=== PATIENT | male | born 1960 | race Caucasian/White ===

== ENCOUNTER 2020-01-17 15:27 | Emergency (ER) | payer BC ==
--- NOTE | 2020-01-17 16:00 | CR ---
PROCEDURE INFORMATION: Exam: XR Right Ankle Exam date and time: 01/17/2020 3:50 PM Age: 59 years old Clinical indication: Other: Fall/pain TECHNIQUE: Imaging protocol: XR Right ankle. Views: 3 or more views. COMPARISON: No relevant prior studies available. FINDINGS: Bones/joints: Widening of the medial ankle mortise with probable fracture in the medial malleolus. Ligamentous injury is also suspected. Consider MRI. Small plantar calcaneal spur. Soft tissues: Normal. IMPRESSION: Widening of the medial ankle mortise with probable fracture in the medial malleolus. Ligamentous injury is also suspected. Consider MRI.
--- NOTE | 2020-01-17 16:41 | EDM.PDOC ---
Scribed by Valeria Hendricks 01/17/20 [id number] for Angelica Witt NP ED HPI GENERAL MEDICAL PROBLEM - General Chief Complaint: Lower Extremity Injury/Pain Stated Complaint: FELL OFF LADDER RIGHT ANKLE POSSIBLY BROKEN Time Seen by Provider: 01/17/20 15:55 Source of Information: Reports: Patient, RN, RN Notes Reviewed History Limitations: Reports: No Limitations - History of Present Illness INITIAL COMMENTS - FREE TEXT/NARRATIVE: Patient presents to the ED with complaint of right medial ankle pain after fall 5 feet from jumping ladder to avoid branch falling. He jumped off and landed on on his right ankle. Onset: Today Duration: Getting Worse Location: Reports: Lower Extremity, Right Quality: Reports: Ache Severity: Moderate Improves with: Reports: None Worsens with: Reports: None Associated Symptoms: Reports: No Other Symptoms Right Ankle Pain Score (Numeric/FACES): 8 - Related Data Allergies Allergy/AdvReac Type Severity Reaction Status Date / Time No Known Allergies Allergy Verified 01/17/20 15:42 Home Meds: Home Meds . [No Known Home Meds] 01/17/20 [History] Past Medical History HEENT History: Reports: Impaired Vision Cardiovascular History: Reports: None Respiratory History: Reports: None Gastrointestinal History: Reports: None Genitourinary History: Reports: None Musculoskeletal History: Reports: None Neurological History: Reports: None Psychiatric History: Reports: None Endocrine/Metabolic History: Reports: None Hematologic History: Reports: None Immunologic History: Reports: None Oncologic (Cancer) History: Reports: None Dermatologic History: Reports: None - Infectious Disease History Infectious Disease History: Reports: None - Past Surgical History Head Surgeries/Procedures: Reports: None Social & Family History - Family History Family Medical History: Noncontributory - Tobacco Use Smoking Status *Q: Never Smoker Second Hand Smoke Exposure: No - Caffeine Use Caffeine Use: Reports: None - Recreational Drug Use Recreational Drug Use: No Review of Systems - Review of Systems Review Of Systems: Comprehensive ROS is negative, except as noted in HPI. ED EXAM, GENERAL - Physical Exam Exam: See Below Exam Limited By: No Limitations General Appearance: Alert, WD/WN, No Apparent Distress Eye Exam: Bilateral Eye: Normal Inspection Ears: Normal External Exam, Normal Canal, Hearing Grossly Normal, Normal TMs Nose: Normal Inspection, Normal Mucosa, No Blood Throat/Mouth: Normal Inspection, Normal Lips, Normal Teeth, Normal Gums, Normal Oropharynx, Normal Voice, No Airway Compromise Head: Atraumatic, Normocephalic Neck: Normal Inspection, Supple, Non-Tender, Full Range of Motion Respiratory/Chest: No Respiratory Distress, Lungs Clear, Normal Breath Sounds, No Accessory Muscle Use, Chest Non-Tender Cardiovascular: Normal Peripheral Pulses, Regular Rate, Rhythm, No Edema, No Gallop, No JVD, No Murmur, No Rub GI/Abdominal: Normal Bowel Sounds, Soft, Non-Tender, No Organomegaly, No Distention, No Abnormal Bruit, No Mass Back Exam: Normal Inspection, Full Range of Motion, NT Extremities: Other (right foot ankle swelling medial malleoluls. ) Neurological: Other (CMS intact to right foot. ) Psychiatric: Normal Affect, Normal Mood Skin Exam: Warm, Dry, Intact, Normal Color, No Rash Course - Vital Signs Text/Narrative:: Consulted with Ortho; Dr. Aparicio from [place]; he will see the pt on [facility]. Placed in a splint and non-wt bearing with crutches. CMS intact. Last Recorded V/S: Last Vital Signs Temp 98.3 F 01/17/20 15:37 Pulse 78 01/17/20 15:37 Resp 18 01/17/20 15:37 BP 170/84 H 01/17/20 15:37 Pulse Ox 98 01/17/20 15:37 - Orders/Labs/Meds Orders: Active Orders 24 hr Category Date Time Status Multi Podus Boots [Specialty Boots] [OM.PC] Routine Oth 01/17/20 16:05 Ordered - Radiology Interpretation Free Text/Narrative:: Right ankle x-ray: Widening of the medial ankle mortise with probable fracture in the medial malleolus. Ligamentous injury is also suspected. Consider MRI. See rad report. Departure - Departure Time of Disposition: 16:07 Disposition: Home, Self-Care 01 Condition: Good Clinical Impression: Ankle fracture, right Qualifiers: Encounter type: initial encounter Fracture type: closed Qualified Code(s): S82.891A - Other fracture of right lower leg, initial encounter for closed fracture - Discharge Information Instructions: Ankle Fracture Forms: ED Department Discharge Additional Instructions: Ankle fracture; will require ortho consult. None wt bearing on right and use ortho boot for stabilization. Crutches and non-wt bearing. Ice/elevation q2-[address] Aparicio in [facility]; he will see you on Saturday. So call in the am and make your appt [phone] Sepsis Event Note (ED) - Evaluation Sepsis Screening Result: No Definite Risk - Focused Exam Vital Signs: Vital Signs Temp Pulse Resp BP Pulse Ox 01/17/20 15:37 98.3 F 78 18 170/84 H 98 - My Orders Last 24 Hours: My Active Orders 01/17/20 16:05 Multi Podus Boots [Specialty Boots] [OM.PC] Routine - Assessment/Plan Last 24 Hours: My Active Orders 01/17/20 16:05 Multi Podus Boots [Specialty Boots] [OM.PC] Routine I have read and agree with the documentation that has been completed regarding this visit. By signing this record, I attest that the documentation was completed in my physical presence and is an accurate record of the encounter.
== END 2020-01-17 16:49 | disposition home or self-care (01) ==
LOC: DL.ED 15:27
DX: S82.91XA Unspecified fracture of right lower leg, initial encounter for closed fracture (principal); W11.XXXA Fall on and from ladder, initial encounter
CPT/HCPCS: 73610-RT; 99283-25; 99284

== ENCOUNTER 2021-07-11 06:27 | Day surgery (SDC) | payer BC ==
[~2021-07-11 06:27] MED LIST: Dextrose 5%-0.45% NaCl 1,000 ML IV SCH; Midazolam 1 MG/ML 2 ML SDV ONE; Sodium Chloride 0.9% 10 ML Syringe FLUSH SCH; fentaNYL 100 MCG/2 ML SDV ONE
[2021-07-11] MEDS ORDERED: fentaNYL 100 MCG/2 ML SDV IV ONE ×3 (06:28→07:35)
[2021-07-11] MEDS ORDERED: Midazolam 1 MG/ML 2 ML SDV IV ONE ×5 (06:28→07:40)
--- NOTE | 2021-07-11 08:18 | OR ---
DATE: 07/11/2021 PROCEDURE: Total colonoscopy. INSTRUMENT USED: PCF-H190DL Olympus video colonoscope. PREMEDICATIONS: Fentanyl 100 mcg intravenous, Versed 3 mg intravenous. Nasal O2 cannula. The procedure was done under pulse oximetry, BP recording, and cardiac monitoring. INDICATION: Screening colonoscopic examination is done for detection of any polypoid lesions and removal, endoscopic hemostasis therapy if needed. DESCRIPTION OF PROCEDURE: Initial rectal exam was unremarkable. Rigid anoscopy was normal. The colonoscope was passed with ease. Numerous scattered wide- mouthed diverticula were noted more so in the distal left colon along with deformity. The scope was passed with ease up to the ileocecal area. Photographs were taken of the normal-appearing cecum identified by landmarks of appendiceal orifice and double-bulged ileocecal folds. No bleeding was noted from any of the visualized areas at the commencement of the examination. The bowel preparation was found to be adequate, Prospect scale 3 in right and transverse colon, 2 in the left colon, total score 8. No stricture. No vascular ectasia. No large isolated ulcerations seen. No evidence of diffuse inflammatory bowel disease in the form of friability, contact bleeding, or ulcerations. No polyp or tumor mass identified. Second look of the right colon was made. Probing the proximal sides of folds and flexures using adequate distention and clearing up the stool material, withdrawal of the scope was made, cecum to rectum time over 6 minutes. No bleeding was noted from any of the visualized areas at the completion of examination. IMPRESSION: Diverticulosis. The patient tolerated the procedure well. [facility] /[id number]
== END 2021-07-11 09:55 | disposition home or self-care (01) ==
LOC: DL.ENDO 06:27
PROVIDERS: ATTEND Internal Medicine Gastroenterology
DX: Z12.11 Encounter for screening for malignant neoplasm of colon (principal); K57.30 Diverticulosis of large intestine without perforation or abscess without bleeding; Z80.0 Family history of malignant neoplasm of digestive organs; Z98.890 Other specified postprocedural states; Z01.812 Encounter for preprocedural laboratory examination; Z20.822 Contact with and (suspected) exposure to COVID-19
CPT/HCPCS: 45378; 87635; J2250; J3010; J7042; U0002